=== PATIENT | female | born 1975 ===

== ENCOUNTER 2018-04-13 08:35 | Day surgery (SDC) | payer BC ==
[2018-04-13] MEDS ORDERED: Lactated Ringer's 500 ML IV ONE (09:06)
[2018-04-13] MEDS ORDERED: Propofol 10 mg/ml Inj (20 ML) ONE (09:27)
[2018-04-13 10:30] VITALS: BP 96/50; PULSE 47; RESP 14; TEMP 97; O2SAT 100
== END 2018-04-13 11:43 | disposition home or self-care (01) ==
LOC: H.ENDO 08:35
PROVIDERS: ATTEND Internal Medicine Gastroenterology
DX: K64.1 Second degree hemorrhoids (principal); D12.5 Benign neoplasm of sigmoid colon; K57.32 Diverticulitis of large intestine without perforation or abscess without bleeding; K57.30 Diverticulosis of large intestine without perforation or abscess without bleeding; K29.50 Unspecified chronic gastritis without bleeding; K21.0 Gastro-esophageal reflux disease with esophagitis
CPT/HCPCS: 43239; 45380; 88305; J2001; J2704; J7120

== ENCOUNTER 2018-11-19 02:33 | Emergency (ER) | payer BC ==
[2018-11-19 03:00] VITALS: BP 104/60; O2SAT 98
[2018-11-19] MEDS ORDERED: Sodium Chloride 0.9% 1,000 ML IV STA (03:50)
[2018-11-19] MEDS ORDERED: Iohexol 240 (50 ml) PO ONE (03:50)
--- NOTE | 2018-11-19 03:53 | ED PDOC ---
HPI: Abdomen Chief Complaint (Provider): abdominal pain History Per: Patient History/Exam Limitations: no limitations Onset/Duration Of Symptoms: Days (2) Current Symptoms Are (Timing): Still Present Location Of Pain/Discomfort: LLQ Quality Of Discomfort: Sharp Associated Symptoms: Nausea, Vomiting (x1) Last Bowel Movement: Today Additional Complaint(s): 43 y/o female presents for evaluation of persistent lower abdominal pain x 2 days. Associated vomiting x 1. Denies fever, chest pain, shortness of breath, palpitations, changes in bowel movements, urinary symptoms, vaginal bleeding/discharge. <Azalea Garsia - Last Filed: 11/19/18 05:18> <Carl Floyd - Last Filed: 11/19/18 14:30> Time Seen by Provider: 11/19/18 03:01 Chief Complaint (Nursing): Abdominal Pain Past Medical History Reviewed: Historical Data, Nursing Documentation, Vital Signs Vital Signs: Last Vital Signs Temp 98.3 F 11/19/18 02:51 Pulse 86 11/19/18 02:51 Resp 17 11/19/18 02:51 BP 104/60 11/19/18 02:51 Pulse Ox 98 11/19/18 02:51 - Medical History PMH: Diabetes, HTN, Migraine - Surgical History Surgical History: (2x) - Family History Family History: States: Unknown Family Hx <Azalea Garsia - Last Filed: 11/19/18 05:18> Vital Signs: Last Vital Signs Temp 98.2 F 11/19/18 07:45 Pulse 84 11/19/18 07:45 Resp 14 11/19/18 07:45 BP 104/60 11/19/18 02:51 Pulse Ox 98 11/19/18 07:45 <Carl Floyd A - Last Filed: 11/19/18 14:30> - Home Medications Home Medications: Ambulatory Orders Medication Instructions Recorded Ciprofloxacin HCl [Cipro] 500 mg PO BID #14 tablet 11/19/18 Metronidazole [Flagyl] 500 mg PO BID #14 tablet 11/19/18 RX: traMADol [Ultram] 50 mg PO TID PRN #15 tab 11/19/18 - Allergies Allergies/Adverse Reactions: Allergies Allergy/AdvReac Type Severity Reaction Status Date / Time No Known Allergies Allergy Verified 04/13/18 09:04 Review of Systems ROS Statement: Except As Marked, All Systems Reviewed And Found Negative Gastrointestinal: Positive for: Nausea, Vomiting, Abdominal Pain <Azalea Garsia - Last Filed: 11/19/18 05:18> Physical Exam - Reviewed Nursing Documentation Reviewed: Yes Vital Signs Reviewed: Yes - Physical Exam Appears: Positive for: Well, Non-toxic, No Acute Distress Head Exam: Positive for: ATRAUMATIC, NORMAL INSPECTION, NORMOCEPHALIC Skin: Positive for: Normal Color Eye Exam: Positive for: Normal appearance ENT: Positive for: Normal ENT Inspection Cardiovascular/Chest: Positive for: Regular Rate, Rhythm Respiratory: Positive for: Normal Breath Sounds Gastrointestinal/Abdominal: Positive for: Bowel Sounds, Soft, Tenderness (LLQ) Back: Positive for: Normal Inspection Extremity: Positive for: Normal ROM Neurologic/Psych: Positive for: Alert, Oriented (x3) <Azalea Garsia - Last Filed: 11/19/18 05:18> - Laboratory Results Result Diagrams: 11/19/18 04:10 11/19/18 04:10 - ECG O2 Sat by Pulse Oximetry: 98 - Progress ED Course And Treament: -upreg -udip -cbc -cmp -lipase -urinalysis -CT abd/pelvis -IV toradol -IV zofran -IV NS bolus <Azalea Garsia C - Last Filed: 11/19/18 05:18> - Laboratory Results Result Diagrams: 11/19/18 04:10 11/19/18 04:10 <Carl Floyd - Last Filed: 11/19/18 14:30> Disposition - Disposition Disposition Time: 06:00 Patient Signed Over To: Carl Floyd Handoff Comments: pending CT, re-eval <Azalea Garsia C - Last Filed: 11/19/18 05:18> - Patient ED Disposition Is Patient to be Admitted: No Doctor Will See Patient In The: Office Counseled Patient/Family Regarding: Studies Performed, Diagnosis, Need For Followup - Disposition Disposition: Routine/Home Disposition Time: 07:00 <Carl Floyd - Last Filed: 11/19/18 14:30> - Clinical Impression Clinical Impression: Abdominal pain, Acute diverticulitis - Disposition Referrals: Gilberto Singh MD [Medical Doctor] - Condition: GOOD Additional Instructions: MARIELA POTTER, thank you for letting us take care of you today. Your provider was Carl Floyd MD and you were treated for LOWER ABDOMINAL PAIN. The emergency medical care you received today was directed at your acute symptoms. If you were prescribed any medication, please fill it and take as directed. It may take several days for your symptoms to resolve. Return to the Emergency De partment if your symptoms worsen, do not improve, or if you have any other problems. Please contact your doctor or call one of the physicians/clinics you have been referred to that are listed on the Patient Visit Information form that is included in your discharge packet. Bring any paperwork you were given at discharge with you along with any medications you are taking to your follow up visit. Our treatment cannot replace ongoing medical care by a primary care provider outside of the emergency department. Thank you for allowing the [facility] team to be part of your care today. If you had an X-Ray or CT scan: A Radiologist will review the ED reading if any change in treatment is needed we will contact you. If you had a blood, urine, or wound culture: It will take several days for the results, if any change in treatment is needed we will contact you. If you had an STI test: It will take 48 hours for the results. Please call after 1 week if you have not heard back. Prescriptions: Ciprofloxacin HCl [Cipro] 500 mg PO BID #14 tablet Metronidazole [Flagyl] 500 mg PO BID #14 tablet RX: traMADol [Ultram] 50 mg PO TID PRN #15 tab PRN Reason: Pain, Severe (8-10) Instructions: Diverticulitis Forms: [employer] (Faroese)
[2018-11-19] MEDS ORDERED: Iohexol 240 (50 ml) ONE (04:11)
[2018-11-19 04:13] LABS: BASO % 0.3 % (0.0-2.0); EOS % 0.4 % (0.0-4.0); HEMOGLOBIN 12.2 g/dL (12.0-16.0); LYMPH # 1.8 K/uL (1.0-4.3); LYMPH % 13.3 % (20.0-40.0); MEAN CELL VOLUME 85.2 fl (81.0-99.0); MEAN CORPUSCULAR HEMOGLOBIN 26.8 pg (27.0-31.0); MEAN CORPUSCULAR HGB CONC 31.5 g/dL (33.0-37.0); MEAN PLATELET VOLUME 8.7 fl (7.2-11.7); MONO # 1.1 K/uL (0.0-0.8); MONO % 8.3 % (0.0-10.0); NEUT # 10.5 K/uL (1.8-7.0); NEUT % 77.7 % (50.0-75.0); NRBC % 0.1 % (0.0-0.0); RBC 4.55 Mil/uL (3.80-5.20); RED CELL DISTRIBUTION WIDTH 14.6 % (11.5-14.5); WHITE BLOOD COUNT 13.5 K/uL (4.8-10.8)
[2018-11-19 04:13] LABS: SQUAMOUS EPITHIAL 1 /hpf (0-5); URINE BILIRUBIN NEGATIVE (NEGATIVE); URINE BLOOD SMALL (NEGATIVE); URINE CLARITY CLEAR (Clear); URINE COLOR STRAW (YELLOW); URINE GLUCOSE (UA) NEG (NEGATIVE); URINE LEUKOCYTE ESTERASE NEG Leu/uL (Negative); URINE PROTEIN NEGATIVE (NEGATIVE); URINE UROBILINOGEN 0.2-1.0 mg/dL (0.2-1.0)
[2018-11-19 04:21] LABS: ALB/GLOB RATIO 1.1 (1.0-2.1); ALBUMIN 4.1 g/dL (3.5-5.0); ALT/SGPT 169 U/L (9-52); AST/SGOT 141 U/L (14-36); BLOOD UREA NITROGEN 9 mg/dl (7-17); GFR NON-AFRICAN AMERICAN > 60; LIPASE 80 U/L (23-300)
[2018-11-19] MEDS ORDERED: Sodium Chloride 0.9% 50 ML IV ONE (06:08)
[2018-11-19] MEDS ORDERED: Iohexol 300 100 ML IJ ONE (06:08)
[2018-11-19 08:34] VITALS: PULSE 84; RESP 14; TEMP 98.2
--- NOTE | 2018-11-19 10:46 | CT ---
Date of service: 11/19/2018 PROCEDURE: CT Abdomen and Pelvis HISTORY: LLQ pain COMPARISON: Comparison made with prior CT scan abdomen and pelvis dated 10/05/2016. TECHNIQUE: Contiguous axial images of the abdomen and pelvis. Oral contrast was administered. No IV contrast given. Coronal and Sagittal reformats generated. Radiation dose: Total exam DLP = 570.0 mGy-cm. This CT exam was performed using one or more of the following dose reduction techniques: Automated exposure control, adjustment of the mA and/or kV according to patient size, and/or use of iterative reconstruction technique. Contiguous helical/transaxial sections of the abdomen pelvis performed following intravenous injection of approximately 90 cc Omnipaque 300 contrast material. Additional 2D sagittal and coronal reformats generated. FINDINGS: LOWER THORAX: Un heart size is within range of normal. No significant pericardial effusion. Small hiatal hernia. Minor bibasilar atelectasis right greater than left. LIVER: Liver is mildly enlarged measuring nearly 20 cm in CC dimension. Suspect minimal fatty hepatic infiltration. No obvious hepatic mass collection or calcification.. Portal and splenic veins are opacified. GALLBLADDER AND BILE DUCTS: Cholelithiasis. PANCREAS: Unremarkable. No mass. No ductal dilatation. SPLEEN: Spleen exhibits normal size and attenuation pattern without mass collection or calcification. ADRENALS: There are no adrenal lesions. KIDNEYS AND URETERS: The unremarkable. No stone or hydronephrosis. BLADDER: The urinary bladder appears incompletely distended which in part accounts for thick-walled appearance. Correlation with urinalysis to exclude cystitis/UTI.. No evidence of intraluminal urinary bladder. REPRODUCTIVE: Uterus appears unremarkable. Questionable small 15 mm right adnexal cyst APPENDIX: Unre the appendix not seen with complete certainty on this exam however no inflammatory changes right lower quadrant of the abdomen. BOWEL: Evaluation of the bowel is somewhat limited due to incomplete opacification. The stomach is incompletely distended which part accounts thick-walled appearance however the possibility of a gastritis or other intrinsic/invasive wall lesion cannot be completely excluded. The visualized loops of small bowel exhibit relatively normal contour and caliber. No evidence of acute mechanical small bowel obstruction. Moderately large amount of stool seen throughout the cecum at ascending and transverse colon consistent with fecal retention/constipation. Diverticulosis again noted. Note is made of localized wall thickening of a short segment of the distal descending colon with associated mild infiltration changes and probably a small amount of fluid in the adjacent mesentery and few scattered colonic diverticula along this segment of bowel. Findings are consistent with a diverticulitis. No definitive of loculated fluid or abscess collections. Note that the possibility of micro perforation not excluded. PERITONEUM: As above. No gross free intraperitoneal air. There is a small fat containing umbilical hernia. LYMPH NODES: Unremarkable. No enlarged lymph nodes. VASCULATURE: Unremarkable. No aortic aneurysm. No aortic atherosclerotic calcification or mural plaque present. BONES: No fracture or destructive lesion. OTHER FINDINGS: None. IMPRESSION: Diverticulosis with acute diverticulitis involving a short segment of the distal descending/sigmoid colon junction with surrounding infiltration and a small amount of fluid. No discrete loculated fluid/at sets collection seen at this time. No gross free intraperitoneal air however micro perforation cannot be excluded. Cholelithiasis. Hepatomegaly with minimal fatty hepatic infiltration. Questionable small right adnexal cyst.
== END 2018-11-19 07:30 | disposition home or self-care (01) ==
LOC: H.ER 02:33
DX: R10.32 Left lower quadrant pain (principal); K57.32 Diverticulitis of large intestine without perforation or abscess without bleeding; E11.9 Type 2 diabetes mellitus without complications; I10 Essential (primary) hypertension; K80.20 Calculus of gallbladder without cholecystitis without obstruction
CPT/HCPCS: 74177; 80053; 81003; 81025; 83690; 85025; 96361; 96374; 96375; 99283; J1885; J2270; J2405; J7030; Q9966; Q9967

== ENCOUNTER 2019-01-01 14:24 | Emergency (ER) | payer BC ==
[2019-01-01 14:52] VITALS: BP 131/68; PULSE 74; RESP 18; TEMP 97.9; O2SAT 99
--- NOTE | 2019-01-01 15:14 | ED PDOC ---
Lower Extremity Pain/Injury Time Seen by Provider: 01/01/19 15:10 Chief Complaint (Nursing): Lower Extremity Problem/Injury Chief Complaint (Provider): Lower Extremity Problem/Injury History Per: Patient History/Exam Limitations: no limitations Onset/Duration Of Symptoms: Hrs Current Symptoms Are (Timing): Still Present Additional Complaint(s): 43 y/o female presents to the ED for evaluation of left ankle pain. Patient reports of twisting her ankle while at home. Patient is able to walk and bear weight. Patient reports of a moderate amount of pain in the left ankle and foot. PMD: none provided Past Medical History Reviewed: Historical Data, Nursing Documentation, Vital Signs Vital Signs: Last Vital Signs Temp 97.9 F 01/01/19 14:48 Pulse 74 01/01/19 14:48 Resp 18 01/01/19 14:48 BP 131/68 01/01/19 14:48 Pulse Ox 99 01/01/19 14:48 - Medical History PMH: Diabetes, HTN, Migraine - Surgical History Surgical History: (2x) - Family History Family History: States: Unknown Family Hx - Home Medications Home Medications: Ambulatory Orders Medication Instructions Recorded Ciprofloxacin HCl [Cipro] 500 mg PO BID #14 tablet 11/19/18 Metronidazole [Flagyl] 500 mg PO BID #14 tablet 11/19/18 traMADol [Ultram] 50 mg PO TID PRN #15 tab 11/19/18 Ibuprofen [Motrin] 600 mg PO Q8 PRN #21 tab 01/01/19 - Allergies Allergies/Adverse Reactions: Allergies Allergy/AdvReac Type Severity Reaction Status Date / Time No Known Allergies Allergy Verified 04/13/18 09:04 Review of Systems ROS Statement: Except As Marked, All Systems Reviewed And Found Negative Musculoskeletal: Positive for: Foot Pain (LEFT ANKLE AND FOOT PAIN) Physical Exam - Reviewed Nursing Documentation Reviewed: Yes Vital Signs Reviewed: Yes - Physical Exam Extremity: Positive for: Tenderness (tenderness noted to the anterior aspect of the left ankle and toes.), Swelling (Minimal swelling to the left ankle) - ECG O2 Sat by Pulse Oximetry: 99 (RA) Pulse Ox Interpretation: Normal Medical Decision Making Medical Decision Making: Time: 1505 Plan: -- Tylenol 975 mg PO -- Ankle Left 3 Views XR -- Foot Left 3 Views XR Scribe Attestation: Documented by Ruma Mandel, acting as a scribe Harrison Jaramillo PA-C. Provider Scribe Attestation: All medical record entries made by the Scribe were at my direction and personally dictated by me. I have reviewed the chart and agree that the record accurately reflects my personal performance of the history, physical exam, medical decision making, and the department course for this patient. I have also personally directed, reviewed, and agree with the discharge instructions and disposition. Disposition - Clinical Impression Clinical Impression: Ankle injury - Patient ED Disposition Is Patient to be Admitted: No - Disposition Referrals: Podiatry Clinic [Outside] Disposition: Routine/Home Disposition Time: 15:19 Condition: FAIR Prescriptions: Ibuprofen [Motrin] 600 mg PO Q8 PRN #21 tab PRN Reason: Pain, Moderate (4-7) Instructions: Ankle Sprain (DC) Forms: [facility] ED School/Work Excuse
--- NOTE | 2019-01-01 15:29 | RAD ---
Date of service: 01/01/2019 PROCEDURE: Left Ankle Radiographs. HISTORY: ANKLE INJURY COMPARISON: None available. FINDINGS: BONES: No acute fracture. JOINTS: Ankle mortise maintained. Talar dome intact SOFT TISSUES: Lateral malleolar soft tissue swelling. OTHER FINDINGS: None. IMPRESSION: Lateral malleolar soft tissue swelling without demonstrated fracture or dislocation.
--- NOTE | 2019-01-01 15:30 | RAD ---
Date of service: 01/01/2019 PROCEDURE: Left Foot Radiographs. HISTORY: injury COMPARISON: None. FINDINGS: BONES: No acute fracture. JOINTS: Normal. SOFT TISSUES: Normal. OTHER FINDINGS: None. IMPRESSION: No demonstrated fracture or dislocation.
== END 2019-01-01 15:45 | disposition home or self-care (01) ==
LOC: H.ER 14:24
DX: S99.912A Unspecified injury of left ankle, initial encounter (principal); X50.9XXA Other and unspecified overexertion or strenuous movements or postures, initial encounter; Y92.89 Other specified places as the place of occurrence of the external cause; E11.9 Type 2 diabetes mellitus without complications; I10 Essential (primary) hypertension